=== PATIENT | female | born 1995 | race Caucasian/White ===

== ENCOUNTER 2021-06-18 19:40 | Emergency (ER) | payer OTHER ==
[~2021-06-18] VITALS: Ht 149.9 cm; Wt 72.6 kg
[~2021-06-18 19:40] MED LIST: ACYCLOVIR800 MG PO; MACRODANTIN100 MG PO; VIROPTIC7.5 ML OP
[2021-06-18] MEDS ORDERED: PRENATALES (20:23)
== END 2021-06-18 23:15 | disposition home or self-care (01) ==
LOC: ER 19:40
DX: O46.8X1 Other antepartum hemorrhage, first trimester (principal); Z3A.08 8 weeks gestation of pregnancy

== ENCOUNTER 2021-09-06 02:47 | Emergency (ER) | payer OTHER ==
[~2021-09-06] VITALS: Ht 149.9 cm; Wt 81.6 kg
[~2021-09-06 02:47] MED LIST changes: +PRENATALES
[2021-09-06] MEDS ORDERED: BUDESONIDE0.5 MG/2 M IH (05:53)
[2021-09-06] MEDS ORDERED: IPRAT-ALBUT 0.5-3 ML IH (05:53)
== END 2021-09-06 06:05 ==
LOC: ER 02:47
DX: O99.512 Diseases of the respiratory system complicating pregnancy, second trimester (principal); J45.901 Unspecified asthma with (acute) exacerbation; Z3A.20 20 weeks gestation of pregnancy; Z91.013 Allergy to seafood; Z20.822 Contact with and (suspected) exposure to COVID-19

== ENCOUNTER 2022-01-16 14:45 | Inpatient (IN) | payer OTHER ==
[~2022-01-16] VITALS: Ht 149.9 cm; Wt 89.4 kg
[~2022-01-16 14:45] MED LIST changes: +BUDESONIDE0.5 MG/2 M IH; +IPRAT-ALBUT 0.5-3 ML IH
[2022-01-26] MEDS ORDERED: IRON325 MG PO (09:52)
== END 2022-01-28 12:11 | disposition home or self-care (01) | DRG 807 ==
LOC: EDSTATUS 14:45 → LDR 01-26 07:44 → OB/GYN 01-26 14:01 → SURG 01-30 14:45
PROVIDERS: ADMIT Obstetrics & Gynecology; ATTEND Obstetrics & Gynecology
PROC: 10E0XZZ Delivery of Products of Conception, External Approach (ICD-10-PCS; principal; 2022-01-26)
PROC: 0HQ9XZZ Repair Perineum Skin, External Approach (ICD-10-PCS; 2022-01-26)
PROC: 4A1HXCZ Monitoring of Products of Conception, Cardiac Rate, External Approach (ICD-10-PCS; 2022-01-26)
DX: O70.1 Second degree perineal laceration during delivery (principal); Z37.0 Single live birth; Z3A.39 39 weeks gestation of pregnancy; Z20.822 Contact with and (suspected) exposure to COVID-19

== ENCOUNTER 2022-01-23 10:31 | Outpatient (CLI) | payer OTHER | END 2022-01-23 11:13 | disposition home or self-care (01) | LOC: NST 10:31 | PROVIDERS: ATTEND Obstetrics & Gynecology Maternal & Fetal Medicine | DX: Z34.83 Encounter for supervision of other normal pregnancy, third trimester (principal) ==